=== PATIENT | female | born 1950 | race Caucasian/White ===

== ENCOUNTER 2018-11-12 14:07 | Outpatient (CLI) | payer MEDICARE | END 2018-11-12 23:59 | disposition home or self-care (01) | LOC: ER 14:07 | PROVIDERS: ATTEND Internal Medicine | PROC: 05H933Z Insertion of Infusion Device into Right Brachial Vein, Percutaneous Approach (ICD-10-PCS; principal; 2018-11-12) | DX: Z45.2 Encounter for adjustment and management of vascular access device (principal); Z79.2 Long term (current) use of antibiotics ==